=== PATIENT | male | born 1990 ===

== ENCOUNTER → 2018-04-19 | Outpatient (REF) | payer SELFPAY, OTHER ==
[2018-04-19 20:47] LABS: SEMEN APPEARANCE OPAQUE (OPAQUE); SEMEN VISCOSITY VISCOUS (LIQUID); SEMEN VOLUME 1.8 ml (4.0-5.0); SPERM ABNORMAL FORMS OTHER (SPECIFIY); SPERM CONCENTRATION 4.9 M/ml (>=15.0); WBC CONCENTRATION >1 M/ml (<=1 M/ml)
[2018-04-19 20:48] LABS: % NORMAL FORMS 5 % (>=4); IMMOTILITY 55 %; NON PROGRESSIVE MOTILITY (c) 22 %; PROGRESSIVE MOTILITY (a) 23 % (>=32); SPERM# 8.8 M/Ejac (>=39); TOTAL FUNCTIONAL 0.2 M/Ejac.; TOTAL MOTILITY 45 % (>=40)
== END ==
LOC: M LAB REF 17:44
DX: N46.9 Male infertility, unspecified (principal)

== ENCOUNTER → 2018-07-28 | Outpatient (REF) | payer OTHER | LOC: M LAB REF 09:57 | PROVIDERS: ATTEND Physician Assistant | DX: N46.9 Male infertility, unspecified (principal) ==